=== PATIENT | female | born 1945 ===

== ENCOUNTER 2020-12-20 08:00 | Outpatient (CLI) | payer OTHER | END 2020-12-20 08:30 | disposition home or self-care (01) | LOC: PPH VACUNA 08:00 | DX: Z23 Encounter for immunization (principal) ==

== ENCOUNTER 2021-05-18 14:25 | Emergency (ER) | payer OTHER ==
[~2021-05-18] VITALS: Ht 152.4 cm; Wt 63.0 kg
[2021-05-18] MEDS ORDERED: XANAX1 MG PO (14:40)
[2021-05-18] MEDS ORDERED: ADULT LOW DOSE81 M1 PO (14:40)
[2021-05-18] MEDS ORDERED: VALSARTAN80 MG PO (14:40)
[2021-05-18] MEDS ORDERED: AMLOD-VALSA-HC1 EAC1 PO (14:40)
[2021-05-18] MEDS ORDERED: CRESTOR10 MG PO (14:40)
[2021-05-18] MEDS ORDERED: SYNTHROID50 MCG PO (14:41)
[2021-05-18] MEDS ORDERED: VITAMIN B-121000 MC4 (14:41)
[2021-05-18] MEDS ORDERED: PROLIA60 MG/1 ML (14:41)
[2021-05-18] MEDS ORDERED: NOXIFOL-D32500 UNIT PO (14:42)
[2021-05-18] MEDS ORDERED: VITAMIN C500 M1 PO (14:42)
[2021-05-18] MEDS ORDERED: CIPRO500 MG PO (18:24)
== END 2021-05-18 18:48 | disposition home or self-care (01) ==
LOC: ER 14:25
DX: R19.7 Diarrhea, unspecified (principal)

== ENCOUNTER 2021-07-19 08:00 | Outpatient (CLI) | payer OTHER ==
[~2021-07-19 08:00] MED LIST: ADULT LOW DOSE81 M1 PO; AMLOD-VALSA-HC1 EAC1 PO; CIPRO500 MG PO; CRESTOR10 MG PO; NOXIFOL-D32500 UNIT PO; PROLIA60 MG/1 ML; SYNTHROID50 MCG PO; VALSARTAN80 MG PO; VITAMIN B-121000 MC4; VITAMIN C500 M1 PO; XANAX1 MG PO
== END 2021-07-19 08:30 | disposition home or self-care (01) ==
LOC: PPH VACUNA 08:00
PROVIDERS: ATTEND Emergency Medicine Pediatric Emergency Medicine
DX: Z23 Encounter for immunization (principal)